=== PATIENT | male | born 1955 | race Caucasian/White ===

== ENCOUNTER 2018-04-15 22:10 | Emergency (ER) | payer OTHER ==
[~2018-04-15 22:10] MED LIST: Iopamidol 370 76% 100 ML VIAL ONE
--- NOTE | 2018-04-15 23:01 | RAD ---
TWO VIEWS CHEST: 04/15/18 HISTORY: Cough for two weeks. PA and lateral views of the chest is obtained. The lungs are well aerated. No evidence of active intr athoracic disease seen. No evidence of effusions, pneumonia or pneumothorax seen. IMPRESSION: Normal two views chest. POS: [facility]
[2018-04-15 23:10] LABS: #Basophils 0.1 thou/uL (0.0-0.2); #Eosinphils 0.3 thou/uL (0.0-0.7); #Lymphocytes 3.2 thou/uL (1.20-3.40); #Monocytes 0.6 thou/uL (0.11-0.59); #Neutrophils 5.3 thou/uL (1.40-6.50); %Basophils 0.9 % (0.0-1.0); %Eosinophils 3.4 % (0.0-10.0); %Lymphocytes 33.5 % (21.0-51.0); %Monocytes 6.7 % (0.0-10.0); %Neutrophils 55.5 % (42.0-75.0); Hemoglobin 14.9 g/dL (14.0-18.0); Mean Corpuscular HGB CONC 32.9 g/dL (32.0-36.0); Mean Corpuscular Hemoglobin 32.8 pg (27.0-31.0); Mean Corpuscular Volume 99.7 fL (78.0-98.0); Mean Platelet Volume 8.3 fL (7.4-10.4); Platelet Count 198 thou/uL (130-400); RBC Distribution Width 11.8 % (11.5-14.5); Red Blood Cell (RBC) Count 4.56 mill/uL (4.70-6.10); White Blood Cell (WBC) Count 9.5 thou/uL (4.8-10.8)
[2018-04-15 23:15] LABS: Prothrombin Time 13.2 SEC (12.0-14.7)
[2018-04-15 23:22] LABS: ALT (SGPT) 22 U/L (8-55); AST (SGOT) 22 U/L (5-34); Albumin 4.2 g/dL (3.5-5.0); Alkaline Phosphatase 55 U/L (40-150); Anion Gap 18 mmol/L (10-20); BUN (Urea Nitrogen) 20 mg/dL (8.4-25.7); Bilirubin, Total 0.3 mg/dL (0.2-1.2); Calc. Creatinine Clearance 0 mL/min (70-130); Calcium 9.7 mg/dL (7.8-10.44); Carbon Dioxide 20 mmol/L (22-29); Chloride 105 mmol/L (98-107); Estimated GFR-MDRD 48; Globulin 2.7 g/dL (2.4-3.5); Glucose 108 mg/dL (70-105); Potassium 3.5 mmol/L (3.5-5.1); Protein, Total 6.9 g/dL (6.0-8.3); Sodium 139 mmol/L (136-145)
--- NOTE | 2018-04-16 | CT ---
CONTRAST ENHANCED CTA CHEST 04/15/18 HISTORY: Cough for two weeks with blood. Contrast enhanced CTA of the chest is performed with 2D and 3D reconstructed images performed on an [employer] 3D workstation. CTA images demonstrate the thoracic aorta to be unremarkable. No evidence of aneurysms or dissection seen. No evidence of filling defects seen in the pulmonary arteries to suggest pulmonary emboli. No evidence of lymphadenopathy seen. There are areas of patchy density in the left upper lobe concerning for left upper lobe pneumonia. IMPRESSION: 1. Areas of density in the left upper lobe concerning for pneumonia. 2. No evidence of pulmonary emboli seen. POS: [facility]
[2018-04-16] MEDS ORDERED: cefTRIAXone\\ROCEPHIN 2 GM VIAL ONE (00:10)
[2018-04-16] MEDS ORDERED: Sodium Chloride 0.9% 100 ML ONE (00:10)
[2018-04-16] MEDS ORDERED: Azithromycin 500 MG VIAL ONE (00:56)
[2018-04-16] MEDS ORDERED: Sodium Chloride 0.9% 250 ML 250 ML ONE (00:57)
== END 2018-04-16 01:10 | disposition short-term general hospital (02) ==
LOC: NAV ERS 22:10
DX: J18.9 Pneumonia, unspecified organism (principal); R04.0 Epistaxis; F17.210 Nicotine dependence, cigarettes, uncomplicated
CPT/HCPCS: 71046; 71275; 80053; 85025; 85610; 87040; 93005; 96374; 96375; J0456; J0696; J7050